=== PATIENT | female | born 1995 | race Caucasian/White ===

== ENCOUNTER 2017-06-08 09:53 | Emergency (ER) | payer SELFPAY | END 2017-06-08 11:10 | disposition left against medical advice (07) | LOC: ED 09:53 | DX: O20.9 Hemorrhage in early pregnancy, unspecified (principal); Z3A.08 8 weeks gestation of pregnancy; Z53.21 Procedure and treatment not carried out due to patient leaving prior to being seen by health care provider ==

== ENCOUNTER 2017-12-16 13:45 | Outpatient (CLI) | payer SELFPAY ==
[2017-12-16 14:42] LABS: Bacteria,Urine 1+ /HPF (Negative); Bilirubin,Urine NEG (Negative); Blood,Urine NEG (Negative); Color,Urine Straw (Yellow); Protein,Urine <15 mg/dL mg/dL (Negative); Urobilinogen,Urine < 2.0 mg/dL (<2.0)
[2017-12-16] MEDS ORDERED: LACTATED RINGERS 1,000 ML IV ONE (15:02)
[2017-12-16 16:08] VITALS: BP 101/57
== END 2017-12-16 16:25 | disposition home or self-care (01) ==
LOC: TRG 13:45
PROVIDERS: ATTEND Obstetrics & Gynecology
DX: O47.03 False labor before 37 completed weeks of gestation, third trimester (principal); Z3A.35 35 weeks gestation of pregnancy
CPT/HCPCS: 59025; 81001; J7120

== ENCOUNTER 2018-01-15 12:48 | Inpatient (IN) | payer SELFPAY ==
[2018-01-15] MEDS ORDERED: XYLOCAINE 2% INFILTRATI ONE (14:46)
[2018-01-15] MEDS ORDERED: MINERAL OIL PO PRN (14:46)
[2018-01-15] MEDS ORDERED: BRETHINE IVP PRN (14:46)
[2018-01-15] MEDS ORDERED: BRETHINE SUB-Q PRN (14:46)
[2018-01-15] MEDS ORDERED: STADOL IV PRN (14:46)
[2018-01-15] MEDS ORDERED: PITOCin/NS 20 UNIT/1000ML DRIP 20 UNITS/1,000 ML BAG IV SCH (15:00)
[2018-01-15] MEDS ORDERED: PITOCin/NS 30 UNIT/500ML 30 UNITS/500 ML BAG IV SCH ×2 (15:00)
[2018-01-15 15:40] LABS: Hematocrit 28.9 % (30.3-42.9); Hemoglobin 9.3 gm/dl (10.1-14.3); Mean Corpuscular HGB Conc 32 % (30-34); Mean Corpuscular Volume 75 fl (79-97); Platelet Count 398 K/mm3 (140-440); Red Blood Count 3.86 M/mm3 (3.65-5.03); Red Cell Distribution Width 15.7 % (13.2-15.2)
[2018-01-15 15:51] LABS: Mean Corpuscular Hemoglobin 24 pg (28-32)
[2018-01-15] MEDS: LACTATED RINGERS 1,000 ML IV SCH ×3 (16:39→23:46)
--- NOTE | 2018-01-15 18:25 | History and Physical Report ---
History of Present Illness Date of examination: 01/15/18 Date of admission: 01/15/18 12:49 Chief complaint: SROM History of present illness: Pt is a 22yo HF EDC 01/17/18; EGA 39 5/7 weeks presents to L&D complaining of SROM clear fluid @ 1100 today followed by RUC's. She received care at [facility] since 11 weeks and course has been unremarkable. records are available and GBS is Negative. Past History Past Medical History: no pertinent history Past Surgical History: no surgical history Social history: no significant social history, single - Obstetrical History Expected Date of Delivery: 01/17/18 Actual Gestation: 39 Week(s) 5 Day(s) : 2 Medications and Allergies Allergies Allergy/AdvReac Type Severity Reaction Status Date / Time No Known Allergies Allergy Unverified 12/16/17 13:49 Home Medications Medication Instructions Recorded Confirmed Last Taken Type Pnv No.121/Iron/Folic Acid 1 tab PO DAILY 12/16/17 12/16/17 Unknown History [ Multivitamin Tablet] Active Meds: Active Medications Butorphanol Tartrate (Stadol) 2 mg IV Q2H PRN PRN Reason: Pain , Severe (7-10) Ephedrine Sulfate (Ephedrine Sulfate) 10 mg IV Q2M PRN PRN Reason: Hypotension Lactated Ringer's (Lactated Ringers) 1,000 mls @ 125 mls/hr IV DIRECT FRANCOISE Last Admin: 01/15/18 16:39 Dose: 125 mls/hr Oxytocin/Sodium Chloride (Pitocin/Ns 20 Unit/1000ml Drip) 20 units in 1,000 mls @ 125 mls/hr IV DIRECT FRANCOISE Oxytocin/Sodium Chloride (Pitocin/Ns 30 Unit/500ml) 30 units in 500 mls @ 1 mls /hr IV TITR FRANCOISE; Protocol Oxytocin/Sodium Chloride (Pitocin/Ns 30 Unit/500ml) 30 units in 500 mls @ 4 mls /hr IV TITR FRANCOISE; Protocol Last Admin: 01/15/18 16:40 Dose: 4 ml/hr, 4 mls/hr Mineral Oil (Mineral Oil) 30 ml PO QHS PRN PRN Reason: Constipation Terbutaline Sulfate (Brethine) 0.25 mg SUB-Q ONCE PRN PRN Reason: Hyperstimulation/Hypertonicity Terbutaline Sulfate (Brethine) 0.25 mg IVP ONCE PRN PRN Reason: Hyperstimulation/Hypertonicity Review of Systems All systems: negative - Vital Signs Vital signs: Vital Signs Pulse BP 94 H 121/76 01/15/18 13:27 01/15/18 13:27 Temp Pulse Resp BP Pulse Ox 97.9 F 94 H 16 121/76 01/15/18 14:42 01/15/18 13:27 01/15/18 14:42 01/15/18 13:27 - Physical Exam Breasts: Positive: deferred Cardiovascular: Regular rate Lungs: Positive: Clear to auscultation Abdomen: Positive: normal appearance Genitourinary (Female): Positive: normal external genitalia Uterus: Positive: enlarged Extremities: Positive: normal - Obstetrical FHR: category 1 Uterine Contraction Monitor Mode: External Cervical Dilatation: 3 (per nurse) Cervical Effacement Percentage: 80 (per nurse) station: -2 Uterine Contraction Pattern: Regular Uterine Tone Measurement Phase: Contraction Uterine Contraction Intensity: Moderate Results Result Diagrams: 01/15/18 15:15 Abnormal lab results 01/15/18 Range/Units 15:15 WBC 12.1 H (4.5-11.0) K/mm3 Hgb 9.3 L (10.1-14.3) gm/dl Hct 28.9 L (30.3-42.9) % MCV 75 L (79-97) fl MCH 24 L (28-32) pg RDW 15.7 H (13.2-15.2) % All other labs normal. Assessment and Plan - Patient Problems (1) 39 weeks gestation of Onset Date: 01/15/18 Current Visit: Yes Status: Acute Plan to address problem: A: IUP @ 39 5/7 weeks in labor P: Admit to L&D for expectant vaginal delivery
[2018-01-15] MEDS ORDERED: NARCAN 2 MG/2 ML IV PRN (23:41)
--- NOTE | 2018-01-16 00:05 | Anesthesia Consultation ---
Anesthesia Consult and Med Hx Date of service: 01/16/18 - Airway Anesthetic Teeth Evaluation: Good ROM Head & Neck: Adequate Mental/Hyoid Distance: Adequate Intubation Access Assessment: Probably Good - Pulmonary Exam CTA: Yes - Cardiac Exam Cardiac Exam: RRR - Pre-Operative Health Status ASA Pre-Surgery Classification: ASA2 Proposed Anesthetic Plan: Epidural, Spinal - Pulmonary Hx Asthma: No COPD: No - Cardiovascular System Hx Hypertension: No Hx Heart Attack/AMI: No - Central Nervous System Hx Neuromuscular Disorder: No Hx Seizures: No CVA: No Hx Back Pain: No - Endocrine Hx Renal Disease: No Hx Liver Disease: No Hx Insulin Dependent Diabetes: No Hx Thyroid Disease: No - Hematic Hx Anemia: Yes - Other Systems Hx Obesity: Yes
[2018-01-16] MEDS: fentaNYL-BUPIV 2 MCG/ML-0.125% 200 MCG/100 ML BAG EPIDURAL SCH ×2 (00:39→09:07)
--- NOTE | 2018-01-16 07:55 | Event Note ---
Date: 01/16/18 O; VE /-1, Pit at 8MU, contractions q 3-4 min, CAT I tracing, epidural in A: SROM and Active labor @ 39.5 weeks P: Expect
[2018-01-16] MEDS ORDERED: XYLOCAINE MPF 2% ONE ×2 (09:01→11:32)
[2018-01-16] MEDS: LACTATED RINGERS 1,000 ML IV SCH (09:35)
[2018-01-16] MEDS ORDERED: GARAMYCIN IV SCH (10:51)
[2018-01-16] MEDS ORDERED: TYLENOL PO PRN ×2 (10:51→14:17)
--- NOTE | 2018-01-16 10:53 | Event Note ---
Called to patient bedside for maternal fever 100.5 and tachycardia 170s. Patient writhing in pain neda Q 1min. FHT Category II FHT Cervix 9/100/-1 Plan 1. Ampicillin 2g IV Q6hr and 2. Gentamicin 1.5mg/kg IV Q8hr for chorioamnionitis 3. Tylenol for fever. 4. Risks, benefits, alternatives of primary csection discussed and informed consent signed if worsening of maternal or status occurs.
[2018-01-16] MEDS ORDERED: POLYCILLIN 2,000 MG in NACL 0.9% 50 ML IV SCH (11:00)
[2018-01-16] MEDS ORDERED: GARAMYCIN/NS 120MG/100ML 120 MG/100 ML BAG IV SCH (12:00)
[2018-01-16] MEDS ORDERED: POLYCILLIN/NS 2 GM/100 ML 2 GM/100 ML BAG IV SCH (12:00)
[2018-01-16] MEDS ORDERED: METHERGINE IM ONE (13:44)
[2018-01-16] MEDS ORDERED: CYTOTEC ONE (13:45)
[2018-01-16] MEDS ORDERED: XYLOCAINE 2% INFILTRATI ONE (13:53)
--- NOTE | 2018-01-16 14:14 | Procedure Note ---
OB Delivery Note - Delivery Surgeon: DARBY WEBB Estimated blood loss: other (400cc) - Vaginal Intrapartum events: febrile- temp >100.3, meconium, extend. tachycardia, uterine atony Delivery induction: none Delivery augmentation: pitocin Delivery monitor: external FHT Route of delivery: Delivery placenta: spontaneous Delivery cord: 3 umbilical vessels Episiotomy: midline Delivery repair: vicryl Anesthesia: local (8ml 2%Lidocaine), epidural Delivery comments: Maternal temperature 100.7 treated empirically with gentamicin/ampicillin. heart rate decreased 170s to 160s at delivery. NICU staff called to delivery due to suspected chorioamionitis, prolonged rupture of membranes. Midline epsiotomy with no extension cut to accommodate head. delivered OA. light meconium noted. Body delivered. Infant noted to be vigorous. Placenta delivered. Uterine atony noted and bimanual massage performed. Methergine 0.2mg IM administered and Cytotec 1000mcg per rectum given. Uterus then noted to be firm. - A at 1 minute: 8 at 5 minutes: 9 Gender: Female ( temp 102. Weight 7lb 11oz.)
[2018-01-16] MEDS ORDERED: LANSINOH TP PRN (14:17)
[2018-01-16] MEDS ORDERED: BENADRYL PO PRN (14:17)
[2018-01-16] MEDS ORDERED: DULCOLAX PR PRN (14:17)
[2018-01-16] MEDS ORDERED: PHENERGAN PO PRN (14:17)
[2018-01-16] MEDS ORDERED: ZOFRAN IV PRN (14:17)
[2018-01-16] MEDS ORDERED: MILK OF MAGNESIA PO PRN (14:17)
[2018-01-16] MEDS ORDERED: PHENERGAN PR PRN (14:17)
[2018-01-16] MEDS ORDERED: TUCKS PAD TP PRN (14:17)
[2018-01-16] MEDS ORDERED: NORCO 5/325 PO PRN (14:17)
[2018-01-16] MEDS ORDERED: MOTRIN PO SCH (15:00)
[2018-01-16] MEDS ORDERED: SODIUM CHLORIDE FLUSH SYRINGE 10 ML IV NR (15:00)
[2018-01-16] MEDS: COLACE PO SCH (22:30)
[2018-01-17 02:09] LABS: Hematocrit 21.3 % (30.3-42.9); Hemoglobin 6.8 gm/dl (10.1-14.3)
[2018-01-17] MEDS ORDERED: LACTATED RINGERS 500 ML IV ONE (02:53)
[2018-01-17] MEDS: FEOSOL PO SCH ×2 (03:24→20:00)
[2018-01-17] MEDS ORDERED: NACL 0.9% 500 ML 500 ML IV ONE (05:42)
[2018-01-17 07:22] LABS: Hematocrit 20.4 % (30.3-42.9); Hemoglobin 6.5 gm/dl (10.1-14.3)
[2018-01-17] MEDS ORDERED: NACL 0.9% 250ML 250 ML ONE (09:47)
--- NOTE | 2018-01-17 13:19 | Progress Note ---
<ALEJANDRA LAKHANI - Last Filed: 01/17/18 14:20> Assessment and Plan - Patient Problems (1) hemorrhage Current Visit: Yes Status: Acute (2) Status post vaginal delivery Current Visit: Yes Status: Acute Subjective - Subjective Principal diagnosis: s/p vaccum-assisted vaginal delivery Interval history: +headache - now resolved with blood transfusion Patient reports: appetite normal, pain well controlled Objective - Vital Signs Latest vital signs: Vital Signs Temp Pulse Resp BP BP Pulse Ox 01/17/18 12:56 98.2 F 77 18 111/43 01/17/18 12:20 98.4 F 75 18 102/59 01/17/18 10:22 97.9 F 83 18 98/50 99 01/17/18 08:16 97.8 F 73 18 101/59 01/17/18 04:10 98.1 F 74 18 89/51 01/17/18 00:45 18 01/17/18 00:20 99.4 F 78 18 114/68 01/16/18 20:20 98.9 F 86 18 138/73 01/16/18 16:28 98.7 F 77 36 H 108/48 97 01/16/18 15:33 88 97/53 01/16/18 15:30 101.3 F H 20 01/16/18 15:22 20 01/16/18 15:09 78 98/53 01/16/18 14:54 88 106/51 01/16/18 14:39 72 107/54 01/16/18 14:24 85 118/70 Intake and Output 01/16/18 01/17/18 01/17/18 23:59 07:59 15:59 Intake Total 480 240 250 Output Total 600 400 Balance -120 -160 250 Intake: Oral 480 240 Blood Product 250 Leukoreduced Red Blood 0 Cells Unit [id number] Leukoreduced Red Blood 250 Cells Unit [id number] Output: Urine 600 400 Void 600 400 Other: Total, Intake Amount 480 240 Total, Output Amount 600 400 - Exam Uterus: Present: firm Extremities: Present: normal - Labs Labs: Abnormal lab results 01/15/18 01/17/18 01/17/18 Range/Units 15:15 01:41 06:49 Hgb 6.8 L 6.5 L (10.1-14.3) gm/dl Hct 21.3 L D 20.4 L (30.3-42.9) % Crossmatch See Detail <DARBY WEBB - Last Filed: 01/17/18 14:31> Assessment and Plan - Patient Problems (1) hemorrhage Current Visit: Yes Status: Acute Plan to address problem: Received methergine, cytotec after delivery for uterine atony. Symptomatic anemia treated with blood transfusion. Currently s/p 2units pRBCs Feels improved. Post-transfusion H/H - pending. (2) Status post vaginal delivery Current Visit: Yes Status: Acute Plan to address problem: Recovering well. Bleeding well controlled. Objective - Vital Signs Latest vital signs: Vital Signs Temp Pulse Resp BP BP Pulse Ox 01/17/18 12:56 98.2 F 77 18 111/43 01/17/18 12:20 98.4 F 75 18 102/59 01/17/18 10:22 97.9 F 83 18 98/50 99 01/17/18 08:16 97.8 F 73 18 101/59 01/17/18 04:10 98.1 F 74 18 89/51 01/17/18 00:45 18 01/17/18 00:20 99.4 F 78 18 114/68 01/16/18 20:20 98.9 F 86 18 138/73 01/16/18 16:28 98.7 F 77 36 H 108/48 97 01/16/18 15:33 88 97/53 01/16/18 15:30 101.3 F H 20 01/16/18 15:22 20 01/16/18 15:09 78 98/53 01/16/18 14:54 88 106/51 01/16/18 14:39 72 107/54 01/16/18 14:24 85 118/70 01/16/18 14:00 100.5 F H 22 01/16/18 13:54 101 H 103/53 01/16/18 13:39 101 H 116/53 01/16/18 13:27 107 H 125/60 Intake and Output 01/16/18 01/17/18 01/17/18 23:59 07:59 15:59 Intake Total 480 240 250 Output Total 600 400 Balance -120 -160 250 Intake: Oral 480 240 Blood Product 250 Leukoreduced Red Blood 0 Cells Unit [id number] Leukoreduced Red Blood 250 Cells Unit [id number] Output: Urine 600 400 Void 600 400 Other: Total, Intake Amount 480 240 Total, Output Amount 600 400 - Labs Labs: Abnormal lab results 01/15/18 01/17/18 01/17/18 Range/Units 15:15 01:41 06:49 Hgb 6.8 L 6.5 L (10.1-14.3) gm/dl Hct 21.3 L D 20.4 L (30.3-42.9) % Crossmatch See Detail
[2018-01-17 18:27] LABS: Hematocrit 27.4 % (30.3-42.9); Hemoglobin 9.1 gm/dl (10.1-14.3)
[2018-01-18] MEDS: FEOSOL PO SCH (08:24)
--- NOTE | 2018-01-18 09:14 | Progress Note ---
Assessment and Plan A: day 2. Anemia. P: Discharge patient home today. discharge instructions and warning signs discussed in detail with patient. Advised pt. to continue vitamins and iron supplements. The following Rx were called to [facility] pharmacy on [address]: Motrin 800 mg, #30, 1 po every 8 hours prn pain, 0 RF; Ferrous Sulfate 325 mg, #60, 1 po BID, 1 RF; Vitamins, #30, 1 po daily , 2 RF. Advised pt. to avoid intercourse, avoid lifting and heavy housework, and avoid driving. Advised pt. to follow up at clinic in 6 weeks for exam. Pt. voiced understanding of discharge instructions. Subjective - Subjective Date of service: 01/18/18 Principal diagnosis: day 2 S/P VAVD Interval history: day 2 S/P VAVD. Doing well. Patient desires discharge today. . Undecided about control method. Patient is voiding without difficulty. Ambulating well. Tolerating a regular diet without nausea or vomiting. Patient denies headache, chest pain, cough, shortness of breath, leg pain, abdominal pain, heavy vaginal bleeding, or symptoms of depression. Patient reports: appetite normal, voiding normally, pain well controlled, flatus , ambulating normally : doing well Objective - Vital Signs Latest vital signs: Vital Signs Temp Pulse Resp BP BP Pulse Ox 01/18/18 00:00 98.4 F 66 18 111/58 01/17/18 14:16 98.4 F 75 18 102/59 01/17/18 12:56 98.2 F 77 18 111/43 01/17/18 12:20 98.4 F 75 18 102/59 01/17/18 10:22 97.9 F 83 18 98/50 99 Intake and Output 01/17/18 01/18/18 01/18/18 23:59 07:59 15:59 Intake Total 240 Balance 240 Intake: Oral 240 Other: Total, Intake Amount 240 # Voids Void 1 1 - Exam Cardiovascular: Present: Regular rate, Normal S1, Normal S2 Lungs: Present: Clear to auscultation Abdomen: Present: normal appearance, soft, normal bowel sounds. Absent: distention, tenderness, guarding, rigidity Uterus: Present: normal, firm, fundal height below umbilicus. Absent: bogginess , tenderness Extremities: Present: normal. Absent: tenderness, edema - Labs Labs: Abnormal lab results 01/15/18 01/17/18 Range/Units 15:15 18:00 Hgb 9.1 L (10.1-14.3) gm/dl Hct 27.4 L D (30.3-42.9) % Crossmatch See Detail
--- NOTE | 2018-01-18 09:30 | Discharge Summary ---
Providers - Providers Date of Admission: 01/15/18 12:49 Date of discharge: 01/18/18 Attending physician: PRIYANKA WARD MD Primary care physician: PRIYANKA WARD MD Hospitalization Reason for admission: active labor Episiotomy: midline Other procedures: none complications: other (severe anemia/blood transfusion) Discharge diagnosis: IUP at term delivered baby: female Pertinent studies: Labs Hospital course: Normal hospital course. Condition at discharge: Good Disposition: DC-01 TO HOME OR SELFCARE - Discharge Diagnoses (1) Term delivered Status: Acute Plan - Discharge Medications Prescriptions: Ferrous Sulfate [Feosol 325 MG tab] 325 mg PO TID 90 Days #90 tablet - Provider Discharge Summary Activity: routine, no sex for 6 weeks, no heavy lifting 4 weeks, no strenuous exercise Diet: routine Instructions: routine Additional instructions: Take vitamin once per day and iron supplement twice per day. Call your doctor immediately for: * Fever > 100.5 * Heavy vaginal bleeding ( >1 pad per hour) * Severe persistent headache * Shortness of breath * Reddened, hot, painful area to leg or breast - Follow up plan Follow up: PRIYANKA WARD MD [Primary Care Provider] - 6 Weeks
[2018-01-18 09:31] VITALS: BP 92/44
[2018-01-18] MEDS: COLACE PO SCH (10:50)
== END 2018-01-18 15:50 | disposition home or self-care (01) | DRG 774 ==
LOC: TRG 12:48 → LD 12:49 → TRG 12:52 → OB 01-16 16:04
PROVIDERS: ADMIT Obstetrics & Gynecology; ATTEND Obstetrics & Gynecology
PROC: 10D07Z6 Extraction of Products of Conception, Vacuum, Via Natural or Artificial Opening (ICD-10-PCS; principal; 2018-01-16)
PROC: 0W8NXZZ Division of Female Perineum, External Approach (ICD-10-PCS; 2018-01-16)
PROC: 3E0R3BZ Introduction of Anesthetic Agent into Spinal Canal, Percutaneous Approach (ICD-10-PCS; 2018-01-16)
PROC: 00HU33Z Insertion of Infusion Device into Spinal Canal, Percutaneous Approach (ICD-10-PCS; 2018-01-16)
PROC: 30233N1 Transfusion of Nonautologous Red Blood Cells into Peripheral Vein, Percutaneous Approach (ICD-10-PCS; 2018-01-17)
DX: O76 Abnormality in fetal heart rate and rhythm complicating labor and delivery (principal); O72.1 Other immediate postpartum hemorrhage; O77.0 Labor and delivery complicated by meconium in amniotic fluid; Z3A.39 39 weeks gestation of pregnancy; Z37.0 Single live birth
CPT/HCPCS: 36415; 85014; 85018; 85027; 86592; 86850; 86900; 86901; 86920; 88307; J0290; J1580; J2210; J2590; J7050; J7120; P9016